=== PATIENT | male | born 2000 | race Caucasian/White ===

== ENCOUNTER 2021-06-05 11:15 | Emergency (ER) | payer OTHER ==
[2021-06-05] MEDS ORDERED: BENADRYL 50 MG/ML IV ONE (11:19)
[2021-06-05] MEDS ORDERED: Zofran 4 MG/2 ML VIAL IV ONE (11:19)
[2021-06-05] MEDS ORDERED: Pepcid 20 MG VIAL IV ONE ×2 (11:19→11:31)
[2021-06-05] MEDS ORDERED: Sodium Chloride 0.9% 1000 ML 1,000 ML IV STA (11:19)
[2021-06-05] MEDS ORDERED: solu-MEDROL 125 MG, Sterile H2O 10 ml 2 ML IV ONE ×2 (11:19)
[2021-06-05] MEDS ORDERED: Sterile H2O 10 ml IJ ONE (11:31)
[2021-06-05] MEDS ORDERED: Zofran 4 MG/2 ML VIAL ONE (11:31)
[2021-06-05] MEDS ORDERED: solu-MEDROL ONE (11:31)
[2021-06-05] MEDS ORDERED: Sodium Chloride 0.9% 1000 ML 1,000 ML ONE (11:31)
[2021-06-05] MEDS ORDERED: BENADRYL 50 MG/ML ONE (11:31)
--- NOTE | 2021-06-05 12:02 | ERPHSYRPT ---
- History of Present Illness Time Seen by Provider: 06/05/21 11:18 Source: patient Exam Limitations: no limitations Patient Subjective Stated Complaint: allergic reaction Triage Nursing Assessment: Patient ambulated back to ED and transferred self to bed. Patient A+O X 3. Patient's skin flushed, warm and dry. Patient complains of touching something slimy on the shopping cart at the grocery store then wiping it off then noticed his face, mouth, nose and eyes. Patient complains of constant burning to face, mouth, nose and eyes. Patient denies SOB or trouble swallowing. Physician History: Patient is here with perioral swelling. Just prior to arrival patient started having symptoms. Him and his daughter are both here with patients. They were in a grocery store. Stated that he had sudden onset of perioral tenderness, swelling, pain. No previous allergic reactions. Unknown substance. They do not know what I will they were on. Patient drove straight here. No problems swallowing, no shortness of breath, no nausea or vomiting. Timing/Duration: today Severity: moderate Modifying Factors: Improves With: other Associated Symptoms: denies symptoms Allergies/Adverse Reactions: No Known Drug Allergies Allergy (Unverified 06/05/21 11:29) Home Medications: No Reportable Medications [No Reported Medications] 06/05/21 [History] Hx Influenza Vaccination/Date Given: No Hx Pneumococcal Vaccination/Date Given: No Immunizations Up to Date: Yes Travel Risk - International Travel Have you traveled outside of the country in past 3 weeks: No - Coronavirus Screening Are you exhibiting any of the following symptoms?: No Close contact with a COVID-19 positive Pt in past 14-21 Days: No - Vaccine Status Have you recieved a Covid-19 vaccination: No - Review of Systems Constitutional: Other (Allergic reaction), No Fever, No Chills Eyes: No Symptoms Ears, Nose, & Throat: No Symptoms Respiratory: No Cough, No Dyspnea Cardiac: No Chest Pain, No Edema, No Syncope Abdominal/Gastrointestinal: No Abdominal Pain, No Nausea, No Vomiting, No Diarrhea Genitourinary Symptoms: No Dysuria Musculoskeletal: No Back Pain, No Neck Pain Skin: No Rash Neurological: No Dizziness, No Focal Weakness, No Sensory Changes Psychological: No Symptoms Endocrine: No Symptoms All Other Systems: Reviewed and Negative - Past Medical History Pertinent Past Medical History: No Neurological History: No Pertinent History ENT History: No Pertinent History Cardiac History: No Pertinent History Respiratory History: No Pertinent History Endocrine Medical History: No Pertinent History Musculoskeletal History: No Pertinent History GI Medical History: No Pertinent History History: No Pertinent History Psycho-Social History: No Pertinent History Male Reproductive Disorders: No Pertinent History - Past Surgical History Past Surgical History: No Neuro Surgical History: No Pertinent History Cardiac: No Pertinent History Respiratory: No Pertinent History Gastrointestinal: No Pertinent History Genitourinary: No Pertinent History Musculoskeletal: No Pertinent History Male Surgical History: No Pertinent History - Social History Smoking Status: Never smoker Exposure to second hand smoke: No Drug Use: none Patient Lives Alone: No - Nursing Vital Signs Nursing Vital Signs: Initial Vital Signs Temperature 97.5 F 06/05/21 11:30 Pulse Rate 71 06/05/21 11:30 Respiratory Rate 18 06/05/21 11:30 Blood Pressure 115/62 06/05/21 11:30 O2 Sat by Pulse Oximetry 99 06/05/21 11:30 Pain Scale Pain Intensity 10 - Physical Exam General Appearance: no apparent distress, alert Eye Exam: PERRL/EOMI, eyes nml inspection Ears, Nose, Throat Exam: normal ENT inspection, TMs normal, pharynx normal, moist mucous membranes Neck Exam: normal inspection, non-tender, supple, full range of motion Respiratory Exam: normal breath sounds, lungs clear, No respiratory distress Cardiovascular Exam: regular rate/rhythm, normal heart sounds, normal peripheral pulses Gastrointestinal/Abdomen Exam: soft, normal bowel sounds, No tenderness, No mass Back Exam: normal inspection, normal range of motion, No CVA tenderness, No vertebral tenderness Extremity Exam: normal inspection, normal range of motion, pelvis stable Neurologic Exam: alert, oriented x 3, cooperative, normal mood/affect, nml cerebellar function, nml station & gait, sensation nml, No motor deficits Skin Exam: normal color, warm, dry, No rash Lymphatic Exam: No adenopathy SpO2 Interpretation: normal SpO2: 100 Comments: 06/05/21 11:59 No trismus, able to fully extend neck, normal range of motion of neck without pain. Uvula is midline, no swelling of the mouth, noraml oropharynx. No exudate, no signs of meningitis, no floor of mouth swelling, no hot potato voice on exam. No buccal swelling, no gum bleeding, no signs of tooth abscess/infection. Patient does have some lip redness. No shedding of skin. - Course Nursing assessment & vital signs reviewed: Yes Ordered Tests: Active Orders 24 hr Category Date Time Status IV Insertion STAT Care 06/05/21 11:19 Active Medication Summary Discontinued Medications Generic Name Dose Route Start Last Admin Trade Name Freq PRN Reason Stop Dose Admin Methylprednisolone Sodium 0 mg 06/05/21 11:19 06/05/21 11:35 Succinate 125 mg/ Sterile IV 06/05/21 11:20 125 mg Water 2 ml STAT ONE Administration Diphenhydramine HCl 25 mg 06/05/21 11:19 06/05/21 11:35 Diphenhydramine Hcl 50 Mg/Ml Vial IV 06/05/21 11:20 25 mg STAT ONE Administration Diphenhydramine HCl Confirm 06/05/21 11:31 Diphenhydramine Hcl 50 Mg/Ml Vial Administered 06/05/21 11:32 Dose 50 mg .ROUTE .STK-MED ONE Famotidine 20 mg 06/05/21 11:19 06/05/21 11:35 Famotidine 20 Mg/1 Vial IV 06/05/21 11:20 20 mg STAT ONE Administration Famotidine Confirm 06/05/21 11:31 Famotidine 20 Mg/1 Vial Administered 06/05/21 11:32 Dose 20 mg IV .STK-MED ONE Sodium Chloride 1,000 mls @ 999 mls/hr 06/05/21 11:19 06/05/21 12:47 Sodium Chloride 0.9% 1000 Ml IV 06/05/21 12:19 Infused .Q1H1M STA Infusion Sodium Chloride Confirm 06/05/21 11:31 Sodium Chloride 0.9% 1000 Ml Administered 06/05/21 11:32 Dose 1,000 mls @ ud .ROUTE .STK-MED ONE Methylprednisolone Sodium Succinate Confirm 06/05/21 11:31 Methylprednis Sod Succ 125 Mg/2 Ml Vial Administered 06/05/21 11:32 Dose 125 mg .ROUTE .STK-MED ONE Ondansetron HCl 8 mg 06/05/21 11:19 06/05/21 11:35 Ondansetron Hcl 4 Mg/2 Ml Vial IV 06/05/21 11:20 8 mg STAT ONE Administration Ondansetron HCl Confirm 06/05/21 11:31 Ondansetron Hcl 4 Mg/2 Ml Vial Administered 06/05/21 11:32 Dose 8 mg .ROUTE .STK-MED ONE Sterile Water Confirm 06/05/21 11:31 Water For Injection,Sterile 10 Ml Vial Administered 06/05/21 11:32 Dose 10 ml IJ .STK-MED ONE - Progress Progress: improved Progress Note: 06/05/21 12:00 Will give patient allergic reaction cocktail, fluids, pain control. 06/05/21 13:37 Patient feeling improved. No signs or symptoms of allergic reaction at this point time. Will discharge patient home. Patient's daughter also looks remarkably well. He will need reexam in 24 to 40 hours. Return here for new or changing symptoms. Counseled pt/family regarding: diagnosis - Departure Departure Disposition: Home Clinical Impression: Allergic reaction Condition: Stable Critical Care Time: No Instructions: Adverse Drug Reactions, Adult (DC)
[2021-06-05 13:49] VITALS: BP 117/60; PULSE 75; O2SAT 99
== END 2021-06-05 13:50 | disposition home or self-care (01) ==
LOC: ED 11:15
DX: T78.40XA Allergy, unspecified, initial encounter (principal)
CPT/HCPCS: 36000; 96360; 96374; 96375; 99284; J1200; J2405; J2930

== ENCOUNTER 2022-05-25 18:09 | Emergency (ER) | payer OTHER ==
[2022-05-25 18:24] VITALS: O2SAT 100
[2022-05-25] MEDS ORDERED: Adacel Vial IM ONE ×2 (18:39→18:52)
[2022-05-25] MEDS ORDERED: NORCO 5/325 MG PO ONE (19:24)
--- NOTE | 2022-05-25 19:25 | ERPHSYRPT ---
- History of Present Illness Source: patient Exam Limitations: no limitations Patient Subjective Stated Complaint: stepped on a nail this morning Triage Nursing Assessment: pt to ED c/o L foot pain r/t stepping on nail this morning while working. pt states he is unsure of tetanus status but that school shots were up to date when he graduated high school. noted puncture wound from nail on bottom of foot with some mild swelling at site. rates 5/10 pain. Physician History: 22 yo WM w L plantar puncture wound after stepping on a nail earlier today. Pt needs a Tdap and denies retained FB. Pain is moderate and worse w weight bearing. He had on cowboy boots at the time. Method of Injury: other (L plantar puncture wound) Occurred: this afternoon Quality: constant Lower Extremities Pain: foot: left Modifying Factors: Improves With: other (Weight bearing) Associated Symptoms: none Allergies/Adverse Reactions: No Known Drug Allergies Allergy (Verified 05/25/22 18:15) Home Medications: Sertraline HCl 50 mg [Zoloft 50 mg Tablet] 50 mg PO DAILY 05/25/22 [History] Hx Tetanus, Diphtheria Vaccination/Date Given: Yes (unsure) Hx Influenza Vaccination/Date Given: No Hx Pneumococcal Vaccination/Date Given: No Immunizations Up to Date: Yes Travel Risk - International Travel Have you traveled outside of the country in past 3 weeks: No - Coronavirus Screening Are you exhibiting any of the following symptoms?: No Close contact with a COVID-19 positive Pt in past 14-21 Days: No - Vaccine Status Have you recieved a Covid-19 vaccination: No - Review of Systems Constitutional: No Symptoms Eyes: No Symptoms Ears, Nose, & Throat: No Symptoms Respiratory: No Symptoms Cardiac: No Symptoms Abdominal/Gastrointestinal: No Symptoms Genitourinary Symptoms: No Symptoms Musculoskeletal: No Symptoms Skin: No Symptoms Neurological: No Symptoms Psychological: No Symptoms Endocrine: No Symptoms Hematologic/Lymphatic: No Symptoms Immunological/Allergic: No Symptoms - Past Medical History Pertinent Past Medical History: No Neurological History: No Pertinent History ENT History: No Pertinent History Cardiac History: No Pertinent History Respiratory History: No Pertinent History Endocrine Medical History: No Pertinent History Musculoskeletal History: No Pertinent History GI Medical History: No Pertinent History History: No Pertinent History Psycho-Social History: No Pertinent History Male Reproductive Disorders: No Pertinent History - Past Surgical History Past Surgical History: Yes Neuro Surgical History: No Pertinent History Cardiac: No Pertinent History Respiratory: No Pertinent History Gastrointestinal: No Pertinent History Genitourinary: No Pertinent History Musculoskeletal: No Pertinent History Male Surgical History: No Pertinent History Other Surgical History: wisdom teeth - Social History Smoking Status: Current every day smoker How long have you smoked: 7 years Exposure to second hand smoke: No Drug Use: none Patient Lives Alone: No - Nursing Vital Signs Nursing Vital Signs: Initial Vital Signs Temperature 98.0 F 05/25/22 18:16 Pulse Rate 110 H 05/25/22 18:16 Respiratory Rate 18 05/25/22 18:16 Blood Pressure 140/67 05/25/22 18:16 O2 Sat by Pulse Oximetry 100 05/25/22 18:16 Pain Scale Pain Intensity 6 Tachy/Hypertensive - Physical Exam General Appearance: no apparent distress Eyes, Ears, Nose, Throat Exam: normal ENT inspection, TMs normal, pharynx normal, moist mucous membranes Neck Exam: normal inspection, non-tender, supple, full range of motion, No Brudzinski, No Kernig's, No meningismus, No carotid bruit Cardiovascular/Respiratory Exam: normal breath sounds, regular rate/rhythm, heart sounds normal Gastrointestinal/Abdominal Exam: non-tender, soft Back Exam: normal inspection, normal range of motion Hips Exam: bilateral: non-tender, normal inspection, normal range of motion, no evidence of injury Legs Exam: bilateral leg: non-tender, normal inspection, normal range of motion, no evidence of injury Knees Exam: bilateral knee: non-tender, normal inspection, normal range of motion, no evidence of injury Ankle Exam: bilateral ankle: non-tender, normal inspection, normal range of motion, no evidence of injury Foot Exam: left foot: other (L distal plantar puncture wound/Good hemostasis/Mod TTP/No palpable retained FB/Good pedal pulse, distal sensation, and capillary return) DTR - Lower Extremities Exam: knee (R): 2+, knee (L): 2+ Neuro/Tendon Exam: normal sensation, normal motor functions, normal tendon functions, responds to pain Mental Status Exam: alert, oriented x 3, cooperative Skin Exam: normal color, warm, dry, No rash SpO2 Interpretation: normal SpO2: 100 O2 Delivery: Room Air - Course Nursing assessment & vital signs reviewed: Yes - Radiology Exams Foot X-ray Interpretation: Interpreted by me (L foot XR neg per ER read) Ordered Tests: Active Orders 24 hr Category Date Time Status Wound Care STAT Care 05/25/22 19:34 Completed FOOT (MINIMUM 3 VIEWS) Stat Exams 05/25/22 19:08 Taken Medication Summary Discontinued Medications Generic Name Dose Route Start Last Admin Trade Name [place] PRN Reason Stop Dose Admin Hydrocodone Bitart/Acetaminophen 1 tab 05/25/22 19:24 05/25/22 19:29 Hydrocodone/Apap 5/325 1 Tab Tablet PO 05/25/22 19:25 1 tab STAT ONE Administration Hydrocodone Bitart/Acetaminophen Confirm 05/25/22 19:28 Hydrocodone/Apap 5/325 1 Tab Tablet Administered 05/25/22 19:29 Dose 1 tab .ROUTE .STK-MED ONE Bacitracin Zinc 0.9 each 05/25/22 19:34 05/25/22 19:35 Bacitracin Packet 1 Each Pckt TP 05/25/22 19:35 0.9 each STAT ONE Administration Bacitracin Zinc Confirm 05/25/22 19:35 Bacitracin Packet 1 Each Pckt Administered 05/25/22 19:36 Dose 1 each .ROUTE .STK-MED ONE Diphtheria/Tetanus/Acell Pertussis 0.5 ml 05/25/22 18:39 05/25/22 18:55 Tdap --Diph,Pertuss(Acell),Tet Vac/Pf 0.5 Ml Vial IM 05/25/22 18:40 0.5 ml .ONCE ONE Administration Diphtheria/Tetanus/Acell Pertussis Confirm 05/25/22 18:52 Tdap --Diph,Pertuss(Acell),Tet Vac/Pf 0.5 Ml Vial Administered 05/25/22 18:53 Dose 0.5 ml IM .STK-MED ONE - Progress Progress: improved Progress Note: 05/25/22 19:28 Tdap/Norco5 po x1 Counseled pt/family regarding: diagnosis, need for follow-up, rad results - Departure Departure Disposition: Home Clinical Impression: Puncture wound of plantar aspect of foot Condition: Stable Critical Care Time: No Referrals: LUISA WILLAMS [Primary Care Provider] - Follow up/PCP as directed Instructions: Wound Care (DC) Additional Instructions: Wash wound twice a day with soap/Water Start Augmentin twice a day for 1 week Motrin/Tylenol for pain Return to ER for increasing pain/Temperature greater than 100.5/Any pus/Increasing redness Prescriptions: Amox Tr/Potass Clav. 875 mg [Augmentin 875-125 Tablet] 1 each PO BID 7 Days #14 tablet
[2022-05-25] MEDS ORDERED: NORCO 5/325 MG ONE (19:28)
[2022-05-25] MEDS ORDERED: BACIGUENT PACKET TP ONE (19:34)
[2022-05-25] MEDS ORDERED: BACIGUENT PACKET ONE (19:35)
[2022-05-25 19:39] VITALS: BP 128/75; PULSE 92
--- NOTE | 2022-05-26 08:42 | XRAY ---
Indication: Stepped on nail. Comparison: None 3 nonweightbearing views left foot obtained. No bony, articular, or soft tissue abnormalities.
--- NOTE | 2022-05-26 08:42 | XRAY ---
Indication: Stepped on nail. Comparison: None 3 nonweightbearing views left foot obtained. No bony, articular, or soft tissue abnormalities.
== END 2022-05-25 19:43 | disposition home or self-care (01) ==
LOC: ED 18:09
DX: S91.332A Puncture wound without foreign body, left foot, initial encounter (principal); W22.8XXA Striking against or struck by other objects, initial encounter; Z28.310 Unvaccinated for COVID-19
CPT/HCPCS: 73630; 90471; 90715; 99283; A9270-GY